=== PATIENT | female | born 1985 | race Caucasian/White ===

== ENCOUNTER 2024-11-09 20:29 | Inpatient (IN) ==
--- NOTE | 2024-11-09 21:02 | History & Physical Report ---
Date of Service November 09, 2024 Assessment & Plan (1) 37 weeks gestation of : (2) IUGR (intrauterine growth restriction) affecting care of mother: (3) Gestational diabetes mellitus (GDM) affecting , antepartum: (4) Breech presentation: Plan admit, iv, labs. plan for c/s due to srom, breech presentation. consent reviewed and signed. Anesth and peds aware. History of Present Illness Chief Complaint: leaking fluid and contractions. Primary Care Provider: Meghana Womack, 39yo at 38wk ega presents to LD with cc of leaking fluid and contractions. Notes clear fluid leaking and then while driving into hospital onset of ctx q2 min. +FM. No bleeding. PNC c/b 1. breech presentation 2. iugr 3. ama 4. hypothyroid 5. gdm 6. h/o maternal tachycardia PNL rh pos, ri, gbs neg OBH: sab x 3 GYNH: nl paps, infertility, no stds Allergies Allergy/AdvReac Type Severity Reaction Status Date / Time No Known Allergies Allergy Verified 11/04/24 14:27 Home Medications Medication Instructions Recorded Confirmed Type lorazepam 0.5 mg tablet 0.5 mg PO DAILY PRN Anxiety 12/19/21 11/04/24 History prenat.vits,cynthia,xqs-kqlv-jeadr 3 tab PO DAILY 12/19/21 11/04/24 History bimatoprost 0.03 % drops with 1 applic topical DAILY #5 mL 11/07/23 11/09/24 Rx applicator, eyelash base (Latisse) triamcinolone acetonide 0.1 % 1 applic topical BID PRN itching 12/10/23 11/04/24 History topical cream ondansetron 4 mg disintegrating 4 mg PO Q8H PRN nausea and 04/22/24 11/04/24 Rx tablet vomiting #30 tabs acetone (urine) test (Ketone Urine #50 ea 09/22/24 11/04/24 Rx Test strips) lancets (Accu-Chek Softclix #150 ea 09/22/24 11/04/24 Rx Lancets) blood sugar diagnostic (Accu-Chek #150 ea 10/20/24 11/04/24 Rx Guide test strips) blood-glucose meter (Accu-Chek #1 ea 10/20/24 11/04/24 Rx Guide Me Glucose Meter) Basic 9 1 tab PO BID 11/04/24 11/09/24 History Fibrenta 1,000 - 2,000 mg PO UD 11/04/24 11/09/24 History Magnesium Powder 1 dose PO DAILY 11/04/24 11/04/24 History Potassium Powder 1 dose PO DAILY 11/04/24 11/04/24 History ascorbic acid (vitamin C) 500 mg 850 mg PO DAILY 11/04/24 11/09/24 History tablet cholecalciferol (vitamin D3) 50 50 mcg PO DAILY 11/04/24 11/09/24 History mcg (2,000 unit) capsule (Vitamin D3) cyanocobalamin (vitamin B-12) 1,000 mcg PO DAILY 11/04/24 11/09/24 History 1,000 mcg tablet (Vitamin B-12) docusate sodium 100 mg capsule 100 mg PO DAILY 11/04/24 11/09/24 History (Stool Softener) levothyroxine 25 mcg tablet 25 mcg PO QAM 11/04/24 11/04/24 History (Synthroid) pyridoxine (vitamin B6) 100 mg 100 mg PO DAILY 11/04/24 11/04/24 History tablet (Vitamin B-6) thiamine HCl (vitamin B1) 100 mg 100 mg PO DAILY 11/04/24 11/04/24 History tablet (Vitamin B-1) levothyroxine 25 mcg tablet 25 mcg PO DAILY 11/09/24 11/09/24 History (Synthroid) Patient History Medical History Depression with anxiety hx, no current meds Gestational diabetes mellitus (GDM) affecting , antepartum pt stated "she thinks this may be an incorrect diagnosis" Hypothyroidism Sinus tachycardia previously on 50mg metoprolol, stopped 07/2024 due "baby being small, read it could be a side effect of that medication, so she decided to stop it on her own;" during HR "has been fine"; no current cardio necessary per pt. Surgical History History of esophagogastroduodenoscopy (EGD) Hx of tonsillectomy Hx of wisdom tooth extraction Family History Mother Diabetes Hypertension Brother Diabetes Hypertension Father Diabetes Hypertension Grandmother (Maternal) Breast cancer Denies family history of Ovarian cancer Prostate cancer Myocardial infarction Colorectal cancer Social History Smoking Status: Former smoker Tobacco Type: Cigarettes Age Started Using Tobacco: 17; Age Quit Using Tobacco: 27; packs per day: 0.25; Cigarettes Per Day: 3-4; Second Hand Exposure: Yes (hx, socially only); Do You Dip or Chew Tobacco: No; Hx Alcohol Use: Yes Alcohol type: hard liquor Alcohol Intake Frequency: 4 or More x per/Week Alcohol Intake Frequency Comment: 10-15 drinks/ week Hx Substance Use: No Preferred Language: Hebrew Communication Ability: Effective Visual Impairment: No Limitations Hearing Ability: Normal Gis Coordinator Required: No Beliefs That Will Affect Care: None marital status: marital status details: Jamie (36) [phone] Current Living Situation: Spouse Current Living Situation Comment: lives with spouse, and cats, fob to change liter. current occupational status: employed current occupation: RN Other Information That Helps Us Care for You: No Feels Safe at Home: Yes Childhood Exposure to Second-Hand Smoke: No Diet: regular Diet Comment: regular caffeine: Yes (very rarely ) during the past year weight has: remained stable Dental Care, Regularly: Yes Physical Activity Frequency: Daily Seatbelt Use: always Sunscreen Use: Yes Assistive Devices: None Review of Systems as per Subjective / HPI Physical Exam Constitutional: WD/WN, vitals as above Respiratory: normal respiratory effort, lungs clear to auscultation Cardiovascular: Rate/Rhythm: regular rate and regular rhythm Gastrointestinal (Abdomen): soft gravid nt Musculoskeletal: no edema nontender calves Neurologic: grossly normal Psychiatric: A+Ox3, euthymic affect Genitourinary: OB Exam Abdomen: + breech (shena, by u/s) Manual OB Exam: + cervical dilation fingertip, + cervical effacement 80% and + station -2 OB Exam Monitor Tracing: + external FHT monitor used, + external uterine monitor used (q3), + category I and + normal FHT variability SSE +pooling, +nitrazine, +ferning. Results & Data Vital Signs (Past 12 Hours) Vital Signs Pulse BP 11/09/24 20:47 97 H 134/70 Coding Level of Care Code None Diagnoses 37 weeks gestation of Z3A.37 IUGR (intrauterine growth restriction) affecting care of mother O36.5990 Gestational diabetes mellitus (GDM) affecting , antepartum O24.419 Breech presentation O32.1XX0
[2024-11-09] MEDS ORDERED: PHENYLEPHRINE HCL 10 MG/ML VIAL ONE (21:12)
[2024-11-09] MEDS ORDERED: MoRPHine SULFATE PF 1 MG/ML 10 ML AMP/VIAL ONE (21:12)
[2024-11-09] MEDS: ACETAMINOPHEN 500 MG TAB PO SCH (21:14)
[2024-11-09] MEDS: CITRIC ACID/SODIUM CITRATE 15 ML UDC PO SCH (21:17)
[2024-11-09] MEDS: LACTATED RINGER'S 1,000 ML IV SCH (21:17)
[2024-11-09] MEDS: AZITHROMYCIN 500 MG/255 ML BAG IV SCH (21:24)
[2024-11-09 21:26] LABS: Hematocrit (blood only) 40.8 % (37.0-47.0); Hemoglobin 14.5 g/dl (12.0-16.0); Mean Corpuscular Hemoglobin 30.9 pg (25.0-34.0); Mean Corpuscular Volume 87.0 fL (80.0-100.0); Platelet Count 183 K/uL (130-400); RDW Standard Deviation 41.2 fL (36.4-46.3); Red Blood Count 4.69 M/uL (4.20-5.40); White Blood Count 15.80 K/ul (4.8-10.8)
[2024-11-09] MEDS ORDERED: NALOXONE HCL 1 MG in SODIUM CHLORIDE 0.9% 1,000 ML IV PRN (21:47)
[2024-11-09] MEDS ORDERED: ONDANSETRON INJ 2 MG/ML 2 ML VIAL IV PRN (21:47)
[2024-11-09] MEDS ORDERED: LACTATED RINGER'S 500 ML IV PRN (21:47)
[2024-11-09] MEDS ORDERED: NALOXONE HCL 0.08 MG in SYRINGE 1.8 ML IV PRN (21:47)
[2024-11-09] MEDS ORDERED: HYDROmorphone INJ 0.5 MG/0.5 ML SYR IV PRN (21:47)
[2024-11-09] MEDS ORDERED: DROPERIDOL 5 MG/2 ML VIAL IV PRN (21:47)
[2024-11-09] MEDS ORDERED: NALBUPHINE HCL INJ 10 MG/ML AMP IV PRN (21:47)
[2024-11-09] MEDS ORDERED: diphenhydrAMINE 50 MG/ML VIAL IV PRN ×2 (21:47→22:35)
[2024-11-09] MEDS ORDERED: NALOXONE HCL 0.4 MG/1 ML VIAL/CARP IV PRN (21:47)
[2024-11-09] MEDS ORDERED: OXYTOCIN 10 UNITS/ML VIAL ONE ×3 (21:50)
[2024-11-09] MEDS ORDERED: ONDANSETRON INJ 2 MG/ML 2 ML VIAL ONE ×2 (21:55)
[2024-11-09] MEDS ORDERED: NO NARCOTICS OR SEDATIVES SCH (22:00)
[2024-11-09] MEDS ORDERED: LACTATED RINGER'S 1,000 ML IV SCH (22:00)
[2024-11-09] MEDS ORDERED: DC INTRASPINAL MORPHINE SCH (22:00)
--- NOTE | 2024-11-09 22:21 | Operative Report ---
Post Operative Report Pre & Post Diagnosis Operation Date: 11/09/24 21:30 <No data on this case meets the specified criteria> Preop Dx 1. 37 +wk iup 2. IUGR and GDM and AMA 3. SROM 4. Breech presentation Postop Dx: same I identified the patient and participated in the time-out.: Yes Procedure Operation Date: 11/09/24 21:30 <No data on this case meets the specified criteria> Primary Low Transverse Section. Surgeon Evy Wheeler MD, FACOG Youth Program Director RN Quantitative Blood Loss (QBL) 354 Findings Consistent with Post-Op Diagnosis (viable female apgars 9,9 shena breech. normal uterus tubes and ovaries bilaterally) Fluids 500 Specimens cord blood Drains laura Anesthesia Type Spinal Complications none Disposition Accompanied Patient To Recovery: No Disposition: L&D Indications 39yo at term with breech presentation, and srom for planned c/s. Description of Procedure The patient was taken to the operating room and identified. After adequate anesthesia was obtained, she was placed in the supine position with a leftward tilt on the operating table and prepped and draped in the usual sterile fashion. A laura catheter had already been placed. The knife was used to create a Pfannensteil skin incision that was carried down to the underlying layer of fascia. The fascia was nicked in the midline and this opening was extended laterally using Lugo scissors. Walter clamps were placed on the superior and inferior aspect of the fascial incision tenting it upward and the underlying rectus muscles were dissected off the overlying fascia both sharply and bluntly using Lugo scissors. The rectus muscles were bluntly in the midline. The peritoneal cavity was bluntly entered into. This opening was stretched. The bladder blade was placed. The vesicouterine peritoneum was elevated and opened up into and the bladder flap was created digitally and bladder blade was replaced. The knife was used to create a hysterotomy and this opening was stretched. The operators hand was placed through the hysterotomy and the bladder blade was removed. The buttocks was elevated and with fundal pressure buttocks was delivered followed by the body to level of scapula. The arms were swept across the anterior midline and the head was flexed and delivered with further fundal pressure. The cord was clamped and cut and the infant's mouth and nares were bulb suction. The infant was handed off to the awaiting pediatricians. Cord blood was obtained. The placenta was manually expressed. The uterus was exteriorized and cleared of all clots and debris. Dilute IV Pitocin was begun. The uterine tone was improving. The hysterotomy was closed in a running interlocking fashion using 0 Vicryl followed by a second imbricating layer of 0 Vicryl. 2 areas of bleeding at hysterotomy were reapproximated with interrupted sutures of 2-0 vicryl for excellent hemostasis. The hysterotomy was hemostatic. The pelvis was inspected and no suction needed. The uterus was returned to the abdomen. The gutters were cleared of all clots and debris. The hysterotomy was reinspected and noted to be hemostatic. The fascia was then closed in running fashion using 0 Vicryl. The subcutaneous fat was copiously irrigated and reapproximated using 2-0 chromic. The skin was closed in a subcuticular fashion using 4-0 monocryl. At this point the procedure was terminated. The patient was transferred to the recovery room in stable condition. All sponge, lap and needle counts are correct x2. I attest to the content of the Intraoperative Record and any orders documented therein. Any exceptions are noted below. OB Procedure Charges 79137
--- NOTE | 2024-11-09 22:34 | Anesthesiology Progress Note ---
Date of Service November 09, 2024 Anesthesia Post Procedure Vital Signs Vital Signs: Temp Pulse Resp BP 11/09/24 22:24 94 H 101/56 L 11/09/24 20:47 36.6 C 18 11/09/24 20:47 97 H 134/70 Notes Mental Status: alert / awake / arousable Patient Amnestic to Procedure: Yes Nausea / Vomiting: adequately controlled Pain: adequately controlled Airway Patency, RR, SpO2: stable & adequate BP & HR: stable & adequate Hydration State: stable & adequate Neuraxial Anesthesia: was administered Anesthetic Complications: no major complications apparent
[2024-11-09] MEDS ORDERED: HYDROCORTISONE ACETATE 25 MG SUPP PR PRN (22:35)
[2024-11-09] MEDS ORDERED: BENZOCAINE 20% SPRY 85 APPLN/85 GM CAN EXT PRN (22:35)
[2024-11-09] MEDS ORDERED: SENNA 8.6 MG TAB PO PRN (22:35)
[2024-11-09] MEDS ORDERED: ZOLPIDEM TARTRATE 5 MG TAB PO PRN (22:35)
[2024-11-09] MEDS ORDERED: CALCIUM CARBONATE 500 MG CHEWABLE TAB PO PRN (22:35)
[2024-11-09] MEDS ORDERED: diphenhydrAMINE Capsule 25 MG CAP PO PRN (22:35)
[2024-11-09] MEDS ORDERED: PROMETHAZINE 12.5 MG/50.5 ML BAG IV PRN (22:35)
[2024-11-09] MEDS: KETOROLAC 30 MG/ML VIAL IV SCH (23:06)
[2024-11-09] MEDS: OXYTOCIN 20 UNITS/LR 1,002 ML IV SCH (23:57)
[2024-11-10] MEDS: SIMETHICONE 80 MG CHEW PO SCH (05:23)
[2024-11-10] MEDS: ACETAMINOPHEN 325 MG TAB PO SCH (05:23)
[2024-11-10 06:37] LABS: Hematocrit (blood only) 35.5 % (37.0-47.0); Hemoglobin 12.2 g/dl (12.0-16.0); Immature Granulocytes # (auto) 0.09 K/uL (0.01-0.20); Immature Granulocytes % (auto) 0.5 %; Mean Corpuscular Hemoglobin 30.3 pg (25.0-34.0); Mean Corpuscular Volume 88.3 fL (80.0-100.0); Platelet Count 188 K/uL (130-400); RDW Standard Deviation 42.9 fL (36.4-46.3); Red Blood Count 4.02 M/uL (4.20-5.40); White Blood Count 17.55 K/ul (4.8-10.8)
--- NOTE | 2024-11-10 07:33 | Obstetrical Progress Note ---
Date of Service November 10, 2024 Assessment & Plan (1) care following delivery: Plan stable, routine care. await void, adv diet and ambulate. po pain meds. hgb reviewed. breast, rhpos, ri. Subjective Ambulation: limited ambulation Voiding: laura catheter in place (just removed, no void yet) Passing Gas:: No Diet Tolerance:: regular diet Lochia:: Small Feeding Type:: breast feeding no pain concerns. has binder as she wants to use. Constitutional: + as per Subjective / HPI Physical Exam Constitutional WD/WN, vitals as above Respiratory normal respiratory effort, lungs clear to auscultation Cardiovascular Rate/Rhythm: regular rate and regular rhythm Gastrointestinal (Abdomen) Inspection/Auscultation: abdomen normal to inspection, normal bowel sounds and + abdominal surgical incision (c/d/i) Percussion/Palpation: abdomen soft; abdomen nontender Fundus firm 1cm down Musculoskeletal nt calves no edema Neurologic grossly normal Psychiatric A+Ox3, euthymic affect Results & Data Vital Signs (Past 12 Hours) Vital Signs Temp Pulse Pulse Resp BP BP Pulse Ox 11/10/24 06:02 16 98 11/10/24 05:05 16 100 11/10/24 04:00 17 100 11/10/24 04:00 97.9 F 79 17 118/71 100 11/10/24 03:00 16 97 11/10/24 01:30 17 98 11/10/24 00:35 16 97 11/10/24 00:35 97.9 F 87 16 116/56 L 97 11/10/24 00:26 81 94 11/10/24 00:25 18 11/10/24 00:25 80 116/56 L 11/10/24 00:24 85 96 11/10/24 00:20 81 94 11/10/24 00:19 88 97 11/10/24 00:14 87 91 11/10/24 00:13 83 93 11/10/24 00:09 85 93 11/10/24 00:04 84 94 11/09/24 23:59 81 93 11/09/24 23:58 88 93 11/09/24 23:57 85 120/58 L 11/09/24 23:55 18 11/09/24 23:54 82 94 11/09/24 23:53 83 94 11/09/24 23:49 88 93 11/09/24 23:47 83 94 11/09/24 23:44 82 93 11/09/24 23:39 86 93 11/09/24 23:34 86 84 L 11/09/24 23:32 85 93 11/09/24 23:29 81 94 11/09/24 23:27 90 93 11/09/24 23:25 18 11/09/24 23:25 87 132/60 11/09/24 23:24 91 H 90 11/09/24 23:22 89 94 11/09/24 23:19 97 11/09/24 23:19 88 11/09/24 23:19 88 141/81 H 11/09/24 23:16 89 93 11/09/24 23:14 90 95 11/09/24 23:11 90 94 11/09/24 23:10 18 11/09/24 23:09 85 92 11/09/24 23:06 91 H 130/78 11/09/24 23:05 94 H 90 11/09/24 23:04 93 H 91 11/09/24 23:00 90 90 11/09/24 22:59 94 H 95 11/09/24 22:56 100 H 136/82 11/09/24 22:55 18 11/09/24 22:55 98 H 94 11/09/24 22:54 101 H 98 11/09/24 22:50 103 H 91 11/09/24 22:49 100 H 96 11/09/24 22:46 93 H 134/71 11/09/24 22:44 95 11/09/24 22:44 94 H 11/09/24 22:44 95 H 94 11/09/24 22:40 18 11/09/24 22:40 18 11/09/24 22:40 18 11/09/24 22:39 92 H 97 11/09/24 22:37 98 H 92 11/09/24 22:36 95 H 133/76 11/09/24 22:34 101 H 96 11/09/24 22:25 18 11/09/24 22:25 99.0 F 18 11/09/24 22:24 94 H 101/56 L 11/09/24 20:47 97.9 F 11/09/24 20:47 97 H 134/70 O2 Del Method 11/10/24 06:02 11/10/24 05:05 11/10/24 04:00 11/10/24 04:00 Room Air 11/10/24 03:00 11/10/24 01:30 11/10/24 00:35 11/10/24 00:35 Room Air 11/10/24 00:26 11/10/24 00:25 11/10/24 00:25 11/10/24 00:24 11/10/24 00:20 11/10/24 00:19 11/10/24 00:14 11/10/24 00:13 11/10/24 00:09 11/10/24 00:04 11/09/24 23:59 11/09/24 23:58 11/09/24 23:57 11/09/24 23:55 11/09/24 23:54 11/09/24 23:53 11/09/24 23:49 11/09/24 23:47 11/09/24 23:44 11/09/24 23:39 11/09/24 23:34 11/09/24 23:32 11/09/24 23:29 11/09/24 23:27 11/09/24 23:25 11/09/24 23:25 11/09/24 23:24 11/09/24 23:22 11/09/24 23:19 11/09/24 23:19 11/09/24 23:19 11/09/24 23:16 11/09/24 23:14 11/09/24 23:11 11/09/24 23:10 Room Air 11/09/24 23:09 11/09/24 23:06 11/09/24 23:05 11/09/24 23:04 11/09/24 23:00 11/09/24 22:59 11/09/24 22:56 11/09/24 22:55 11/09/24 22:55 11/09/24 22:54 11/09/24 22:50 11/09/24 22:49 11/09/24 22:46 11/09/24 22:44 11/09/24 22:44 11/09/24 22:44 11/09/24 22:40 11/09/24 22:40 11/09/24 22:40 11/09/24 22:39 11/09/24 22:37 11/09/24 22:36 11/09/24 22:34 11/09/24 22:25 11/09/24 22:25 Room Air 11/09/24 22:24 11/09/24 20:47 11/09/24 20:47
[2024-11-10] MEDS: DIPHTHER/TETAN/PERTUS Vaccine (Tdap, Adol/Adult) 0.5mL IM ONE (07:58)
[2024-11-10] MEDS: LACTATED RINGER'S 1,000 ML IV SCH (08:07)
[2024-11-10] MEDS: KETOROLAC 30 MG/ML VIAL ONE (08:07)
[2024-11-10] MEDS: MoRPHine SULFATE PF 1 MG/ML 10 ML AMP/VIAL INT SPINAL ONE (08:07)
[2024-11-10] MEDS: SODIUM CHLORIDE 0.9% 1,000 ML IV SCH (08:07)
[2024-11-10] MEDS: LEVOTHYROXINE SODIUM 25 MCG TABLET PO SCH (08:22)
[2024-11-10] MEDS: PRENATAL VITAMIN 1 TAB PO SCH (08:22)
[2024-11-10] MEDS: DOCUSATE SODIUM 100 MG CAP PO SCH (08:22)
[2024-11-10] MEDS: FERROUS SULFATE 325 MG TAB PO SCH (08:22)
[2024-11-10] MEDS: IBUPROFEN 600 MG TAB PO PRN (11:18)
[2024-11-10] MEDS ORDERED: HYDROmorphone INJ 0.5 MG/0.5 ML SYR IV PRN (15:48)
[2024-11-10] MEDS ORDERED: ONDANSETRON INJ 2 MG/ML 2 ML VIAL IV PRN (15:48)
[2024-11-10] MEDS ORDERED: KETOROLAC 30 MG/ML VIAL IV PRN (22:32)
--- NOTE | 2024-11-10 22:49 | Obstetrical Progress Note ---
Date of Service <Celeste Magallanes MD - Last Filed: 11/11/24 07:50> November 10, 2024 Assessment & Plan <Celeste Magallanes MD - Last Filed: 11/11/24 07:50> (1) care following delivery: Plan -Stable routine care. Breast feeding. Rhesus negative. Rubella Immune. Hepatitis B Non Immune. -Surgical incision for cesarian section healing appropriately. no signs of infection <Renuka Junior MD - Last Filed: 11/11/24 07:53> (1) care following delivery: Plan -Stable routine care. Breast feeding. Subjective <Celeste Magallanes MD - Last Filed: 11/11/24 07:50> Ambulation: ambulating normally Voiding: no voiding problems Passing Gas:: Yes Diet Tolerance:: regular diet Lochia:: Small Feeding Type:: breast feeding Current Pain Level(1-10): 2 Pt is a 39 year old female G4P, 0, 39 wks 2 dys. She is post op 2 day after an induced labor and delivery. Pt is resting comfortably in the AM Pt further denies any symptoms of SOB, Chest Pain, NVD, and/or LE Edema or Pain. Review of Systems All systems reviewed & are unremarkable except as noted in HPI & below i. Denies fever, chills, sweats ii. Denies SOB, difficulty breathing, chest pain, palpitations, chest pressure iii. Denies breast pain. iv. Denies Dysuria v. Denies headache or changes in vision. Physical Exam <Celeste Magallanes MD - Last Filed: 11/11/24 07:50> Constitutional WD/WN, vitals as above Eyes PERRL, conjunctivae normal, anicteric sclerae ENMT external ear and nose normal, oropharynx normal Neck trachea midline, no thyromegaly Cardiovascular RRR, no murmur, no edema Gastrointestinal (Abdomen) normal bowel sounds, soft, nontender, no hepatosplenomegaly Musculoskeletal no cyanosis or clubbing, extremities motor strength 5/5 Skin no rashes, warm and dry Psychiatric A+Ox3, euthymic affect Genitourinary As per Dr. Junior's Attestation Lymphatic no cervical or axillary lymphadenopathy Results & Data <Celeste Magallanes MD - Last Filed: 11/11/24 07:50> Vital Signs (Past 12 Hours) Vital Signs Temp Pulse Resp BP Pulse Ox O2 Del Method 11/10/24 19:40 36.7 C 88 20 112/78 98 Room Air 11/10/24 16:20 36.7 C 86 20 103/66 98 Room Air 11/10/24 15:15 20 98 11/10/24 13:30 20 100 11/10/24 12:30 20 100 11/10/24 11:25 20 100 11/10/24 11:25 36.5 C 70 20 119/78 100 Supervising Physician <Renuka Junior MD - Last Filed: 11/11/24 07:53> Co-Signing Physician Notes Resident Physician Supervision Note: I interviewed and examined the patient. Discussed with Dr. Magallanes and agree with findings and plan as documented in the note. Any exceptions or clarifications are listed here: Patient seen and examined while resident accompanied me. Pain well controlled, passing gas and voiding, tolerating PO. Exam reassuring with incision c/d/i and fundus firm, Meseret's neg, no edema. Patient was offered D/C today but requests to stay until POD#3 so she can be seen by the [employer] business intelligence consultant tomorrow. Documented By: Renuka Junior MD, FACOG
[2024-11-10] MEDS ORDERED: IBUPROFEN 600 MG TAB PO SCH (23:00)
[2024-11-11 06:33] LABS: Hematocrit (blood only) 34.6 % (37.0-47.0); Hemoglobin 11.9 g/dl (12.0-16.0)
[2024-11-11] MEDS ORDERED: IBUPROFEN 600 MG TAB PO PRN (22:32)
[2024-11-11 23:16] VITALS: RESP 18
[2024-11-11] MEDS: MAGNESIUM HYDROXIDE SUSP 30 ML UDC PO PRN (23:33)
[2024-11-12] MEDS: ACETAMINOPHEN 325 MG TAB PO PRN (05:45)
--- NOTE | 2024-11-12 07:02 | Obstetrical Progress Note ---
Date of Service <Celeste Magallanes MD - Last Filed: 11/12/24 07:44> November 12, 2024 Assessment & Plan <Celeste Magallanes MD - Last Filed: 11/12/24 07:44> (1) care following delivery: Plan -Stable routine care. Breast feeding. Rhesus Positive. Rubella Immune. Hepatitis B Non Immune. -Surgical incision for cesarian section healing appropriately. no signs of infection <Odilon Lambert MD, FACOG - Last Filed: 11/12/24 07:53> (1) care following delivery: Subjective <Celeste Magallanes MD - Last Filed: 11/12/24 07:44> Ambulation: ambulating normally Voiding: no voiding problems Passing Gas:: Yes Diet Tolerance:: regular diet Lochia:: Small Feeding Type:: breast feeding Current Pain Level(1-10): 5 Pt is a 39 year old female , 39 wks 2 dys. She is post op 3 day after an induced labor and delivery, with . Pt is resting comfortably in the AM Pt further denies any symptoms of SOB, Chest Pain, NVD, and/or LE Edema or Pain. Review of Systems All systems reviewed & are unremarkable except as noted in HPI & below i. Denies fever, chills, sweats ii. Denies SOB, difficulty breathing, chest pain, palpitations, chest pressure iii. Denies breast pain. iv. Denies Dysuria v. Denies headache or changes in vision. Physical Exam <Celeste Magallanes MD - Last Filed: 11/12/24 07:44> Constitutional WD/WN, vitals as above Eyes PERRL, conjunctivae normal, anicteric sclerae ENMT external ear and nose normal, oropharynx normal Neck trachea midline, no thyromegaly Cardiovascular RRR, no murmur, no edema Gastrointestinal (Abdomen) normal bowel sounds, soft, nontender, no hepatosplenomegaly Musculoskeletal no cyanosis or clubbing, extremities motor strength 5/5 Skin no rashes, warm and dry Psychiatric A+Ox3, euthymic affect Genitourinary As per Dr. Lambert's Attestation Lymphatic no cervical or axillary lymphadenopathy Results & Data <Celeste Magallanes MD - Last Filed: 11/12/24 07:44> Vital Signs (Past 12 Hours) Vital Signs Temp Pulse Resp BP Pulse Ox O2 Del Method 11/11/24 23:30 37.2 C 66 18 118/68 99 Room Air 11/11/24 21:20 Room Air 11/11/24 21:20 37.1 C 73 18 119/80 100 Room Air Supervising Physician <Odilon Lambert MD, FACOG - Last Filed: 11/12/24 07:53> Co-Signing Physician Notes Resident Physician Supervision Note: I was present with Dr. Daly during the history and exam. I discussed the case with the resident and agree with the findings and plan as documented in the note. Any exceptions or clarifications are listed here: [None] Documented By: Odilon Lambert MD, FACOG
[2024-11-12 07:50] VITALS: BP 128/84; PULSE 89; TEMP 97.7; O2SAT 100
== END 2024-11-12 13:53 | disposition home or self-care (01) | DRG 788 ==
LOC: OPB 20:29 → 4S1 20:31 → 4E2 11-10 00:56
DX: O99.284 Endocrine, nutritional and metabolic diseases complicating childbirth; Z87.891 Personal history of nicotine dependence; Z79.890 Hormone replacement therapy; Z83.3 Family history of diabetes mellitus; Z37.0 Single live birth; O32.1XX0 Maternal care for breech presentation, not applicable or unspecified; Z3A.37 37 weeks gestation of pregnancy; O24.429 Gestational diabetes mellitus in childbirth, unspecified control; O42.92 Full-term premature rupture of membranes, unspecified as to length of time between rupture and onset of labor; O36.5930 Maternal care for other known or suspected poor fetal growth, third trimester, not applicable or unspecified; E03.9 Hypothyroidism, unspecified